=== PATIENT | female | born 1960 | race African-American/Black ===

== ENCOUNTER 2017-04-14 09:16 | Emergency (ER) | payer OTHER ==
[~2017-04-14] VITALS: Ht 167.6 cm; Wt 90.0 kg
[~2017-04-14 09:16] MED LIST: BENA25TA8 PO; LISI-363 PO; PROM25TA5 PO
[2017-04-14 09:17] VITALS: BP 176/104; PULSE 91; RESP 12; TEMP 98.9; O2SAT 98
[2017-04-14 09:30] VITALS: O2SAT 97
[2017-04-14] MEDS ORDERED: LISI-515 PO (09:38)
[2017-04-14] MEDS ORDERED: PROMSYP3 PO (09:38)
[2017-04-14] MEDS ORDERED: AZIT500T2 PO (09:38)
[2017-04-14] MEDS ORDERED: METF500T PO (09:41)
[2017-04-14] MEDS ORDERED: SODIUM CHLOR 0.9% 1000 ML INJ 1,000 ML IV SCH (09:46)
--- NOTE | 2017-04-14 09:55 | PD ---
HPI Chief Complaint: Chest Pain Time Seen by Provider: 09:32 Travel History International Travel<30 days: No Contact w/Intl Traveler<30days: No Traveled to known affect area: No History of Present Illness HPI The patient is a 57-year-old female who presents to the emergency department for multiple complaints. The patient states that her nephew was killed in [place], [place], last week. She has been having anxiety over the last week. She also complains of a chest cold for one week, saw her primary physician, Dr. Vinicius Solorzano, who prescribed her cough medicine and Zithromax. The patient continues to have chest congestion, wheezing, shortness of breath, and cough. She also complains of a sore throat, bilateral ear pain, cervical lymphadenopathy, and bodyaches. She also notes nausea, vomiting, and diarrhea with intermittent abdominal cramping. Symptoms are moderate. There are no current alleviating or exacerbating factors. PFSH Past Medical History Cardiovascular Problems: Yes Diabetes: Yes Patient Takes Glucophage: Yes Diminished Hearing: No Hypertension: Yes Tetanus Vaccination: > 5 Years Influenza Vaccination: No ?: Not Menopausal: Yes Past Surgical History Section: Yes (x2) Gynecologic Surgery: Yes Hysterectomy: Yes Social History Alcohol Use: Yes (SOCIAL ON WEEKENDS) Tobacco Use: No Substance Use: No Allergies-Medications (Allergen,Severity, Reaction): Coded Allergies: penicillin G (Unverified Allergy, Mild, 04/14/17) Reported Meds & Prescriptions Reported Meds & Active Scripts Active Reported Metformin (Metformin HCl) 500 Mg Tab 250 Mg PO DAILY Promethazine-Dextromethorphan Liq (Dextromethorphan-Promethazine Liq) 6.25-15 Mg /5 Ml Syrp 5 Ml PO Q6HR Azithromycin 500 Mg Tab 500 Mg PO DAILY Lisinopril 20 Mg Tab 20 Mg PO DAILY Review of Systems Except as stated in HPI: all other systems reviewed are Neg General / Constitutional: Positive: Fever, Chills HENT: Positive: Sore Throat, Congestion, Neck Pain, Earache Cardiovascular: No: Chest Pain or Discomfort Respiratory: Positive: Cough, Shortness of Breath, Wheezing Gastrointestinal: Positive: Nausea, Vomiting, Diarrhea, Abdominal Pain Genitourinary: No: Dysuria Musculoskeletal: Positive: Myalgias Psychiatric: Positive: Anxiety Physical Exam Narrative GENERAL: Awake, alert, pleasant 57-year-old female who appears her stated age and is in no acute respiratory distress. SKIN: Focused skin assessment warm/dry. HEAD: Atraumatic. Normocephalic. EYES: Pupils equal and round. No scleral icterus. No injection or drainage. ENT: No nasal bleeding or discharge. Oropharynx reveals an ulcerated lesion on the palate, superior left aspect. TMs are dull bilaterally with air-fluid levels. EACs are clear. NECK: Trachea midline. No JVD. Bilateral anterior cervical lymphadenopathy mobile but tender. CARDIOVASCULAR: Regular rate and rhythm. No murmur appreciated. RESPIRATORY: No accessory muscle use. Few scattered wheezes. GASTROINTESTINAL: Abdomen soft, non-tender, nondistended. No rebound tenderness. MUSCULOSKELETAL: No obvious deformities. No clubbing. No cyanosis. No edema. NEUROLOGICAL: Awake and alert. No obvious cranial nerve deficits. Motor grossly within normal limits. Normal speech. PSYCHIATRIC: Appropriate mood and affect; insight and judgment normal. Data Data Last Documented VS Vital Signs Date Time Temp Pulse Resp B/P (MAP) Pulse Ox O2 Delivery O2 Flow Rate FiO2 04/14/17:17 98.9 91 12 176/104 (128) 98 Orders Orders Electrocardiogram (04/14/17 ) Complete Blood Count With Diff (04/14/17 09:46) Comprehensive Metabolic Panel (04/14/17 09:46) Lipase (04/14/17 09:46) Urinalysis - C+S If Indicated (04/14/17 09:46) Iv Access Insert/Monitor (04/14/17 09:46) Ecg Monitoring (04/14/17 09:46) Oximetry (04/14/17 09:46) Ondansetron Inj (Zofran Inj) (04/14/17 10:00) Sodium Chlor 0.9% 1000 Ml Inj (Ns 1000 M (04/14/17 09:46) Sodium Chloride 0.9% Flush (Ns Flush) (04/14/17 10:00) Chest, Single Ap (04/14/17 09:46) Influenzae A/B Antigen (04/14/17 09:46) Lorazepam Inj (Ativan Inj) (04/14/17 10:00) Albuterol-Ipratropium Neb (Duoneb Neb) (04/14/17 10:00) Methylprednisolone So Succ Inj (Solumedr (04/14/17 10:00) Labs Laboratory Tests Test 04/14/17 09:50 04/14/17 11:25 White Blood Count 4.4 TH/MM3 Red Blood Count 4.19 MIL/MM3 Hemoglobin 12.6 GM/DL Hematocrit 36.8 % Mean Corpuscular Volume 87.9 FL Mean Corpuscular Hemoglobin 30.0 PG Mean Corpuscular Hemoglobin Concent 34.2 % Red Cell Distribution Width 13.8 % Platelet Count 248 TH/MM3 Mean Platelet Volume 8.8 FL Neutrophils (%) (Auto) 40.7 % Lymphocytes (%) (Auto) 48.5 % Monocytes (%) (Auto) 9.6 % Eosinophils (%) (Auto) 0.4 % Basophils (%) (Auto) 0.8 % Neutrophils # (Auto) 1.8 TH/MM3 Lymphocytes # (Auto) 2.1 TH/MM3 Monocytes # (Auto) 0.4 TH/MM3 Eosinophils # (Auto) 0.0 TH/MM3 Basophils # (Auto) 0.0 TH/MM3 CBC Comment DIFF FINAL Differential Comment Blood Urea Nitrogen 12 MG/DL Creatinine 0.87 MG/DL Random Glucose 100 MG/DL Total Protein 7.9 GM/DL Albumin 3.8 GM/DL Calcium Level 9.0 MG/DL Alkaline Phosphatase 77 U/L Aspartate Amino Transf (AST/SGOT) 28 U/L Alanine Aminotransferase (ALT/SGPT) 57 U/L Total Bilirubin 0.5 MG/DL Sodium Level 143 MEQ/L Potassium Level 3.3 MEQ/L Chloride Level 107 MEQ/L Carbon Dioxide Level 30.2 MEQ/L Anion Gap 6 MEQ/L Estimat Glomerular Filtration Rate 81 ML/MIN Lipase 308 U/L Urine Color LIGHT-YELLOW Urine Turbidity HAZY Urine pH 7.0 Urine Specific [place] 1.006 Urine Protein NEG mg/dL Urine Glucose (UA) NEG mg/dL Urine Ketones NEG mg/dL Urine Occult Blood NEG Urine Nitrite NEG Urine Bilirubin NEG Urine Urobilinogen LESS THAN 2.0 MG/DL Urine Leukocyte Esterase NEG Urine RBC LESS THAN 1 /hpf Urine WBC 1 /hpf Urine Squamous Epithelial Cells 15 /hpf Urine Bacteria FEW /hpf Microscopic Urinalysis Comment CULT NOT INDICATED MDM Medical Decision Making Medical Screen Exam Complete: Yes Emergency Medical Condition: Yes Medical Record Reviewed: Yes Interpretation(s) EKG reveals normal sinus rhythm with a rate 88. No ischemic changes or ectopy noted. Last Impressions Chest X-Ray 04/14/17 0946 Signed Impressions: Service Date/Time: Friday, April 14, 2017 10:19 - CONCLUSION: Normal examination for a patient of this age. Dario Naik MD Date/Time Source Procedure Growth Status 04/14/17 09:50 Nasal Aspirate Influenza Types A,B Antigen ([facility]) - Final NEGATIVE FOR FLU A AND B ANTIGEN.... Complete Laboratory Tests Test 04/14/17 09:50 04/14/17 11:25 White Blood Count 4.4 TH/MM3 Red Blood Count 4.19 MIL/MM3 Hemoglobin 12.6 GM/DL Hematocrit 36.8 % Mean Corpuscular Volume 87.9 FL Mean Corpuscular Hemoglobin 30.0 PG Mean Corpuscular Hemoglobin Concent 34.2 % Red Cell Distribution Width 13.8 % Platelet Count 248 TH/MM3 Mean Platelet Volume 8.8 FL Neutrophils (%) (Auto) 40.7 % Lymphocytes (%) (Auto) 48.5 % Monocytes (%) (Auto) 9.6 % Eosinophils (%) (Auto) 0.4 % Basophils (%) (Auto) 0.8 % Neutrophils # (Auto) 1.8 TH/MM3 Lymphocytes # (Auto) 2.1 TH/MM3 Monocytes # (Auto) 0.4 TH/MM3 Eosinophils # (Auto) 0.0 TH/MM3 Basophils # (Auto) 0.0 TH/MM3 CBC Comment DIFF FINAL Differential Comment Blood Urea Nitrogen 12 MG/DL Creatinine 0.87 MG/DL Random Glucose 100 MG/DL Total Protein 7.9 GM/DL Albumin 3.8 GM/DL Calcium Level 9.0 MG/DL Alkaline Phosphatase 77 U/L Aspartate Amino Transf (AST/SGOT) 28 U/L Alanine Aminotransferase (ALT/SGPT) 57 U/L Total Bilirubin 0.5 MG/DL Sodium Level 143 MEQ/L Potassium Level 3.3 MEQ/L Chloride Level 107 MEQ/L Carbon Dioxide Level 30.2 MEQ/L Anion Gap 6 MEQ/L Estimat Glomerular Filtration Rate 81 ML/MIN Lipase 308 U/L Urine Color LIGHT-YELLOW Urine Turbidity HAZY Urine pH 7.0 Urine Specific [place] 1.006 Urine Protein NEG mg/dL Urine Glucose (UA) NEG mg/dL Urine Ketones NEG mg/dL Urine Occult Blood NEG Urine Nitrite NEG Urine Bilirubin NEG Urine Urobilinogen LESS THAN 2.0 MG/DL Urine Leukocyte Esterase NEG Urine RBC LESS THAN 1 /hpf Urine WBC 1 /hpf Urine Squamous Epithelial Cells 15 /hpf Urine Bacteria FEW /hpf Microscopic Urinalysis Comment CULT NOT INDICATED Differential Diagnosis Differential diagnosis includes influenza, viral syndrome, pneumonia, gastroenteritis, dehydration, electrolyte abnormality, anxiety, bronchitis. Narrative Course IV was established, labs are drawn and sent, and the patient was placed on cardiac telemetry monitoring and continuous pulse oximetry monitoring. EKG was ordered and interpreted. Chest x-ray was obtained. Influenza screen was sent to lab. The patient was data entry supervisor and IV fluids, Zofran, and Ativan. Influenza screen is negative. Chest x-rays unremarkable. Laboratory evaluation reveals normal white count with increase in lymphocytes. Patient has a viral syndrome with secondary bronchitis reactive airway disease. Patient is already on Zithromax. I will add steroids and albuterol inhaler. She is requesting medications for her anxiety after the of her family member, I will write for 5 Ativan pills. She is advised to follow-up with a primary physician, Dr. Vinicius Solorzano. Return if symptoms worsen or progress. Diagnosis Primary Impression: Viral syndrome Additional Impressions: Bronchitis Adjustment reaction Qualified Codes: F43.20 - Adjustment disorder, unspecified Patient Instructions: General Instructions Additional Instructions: Please provide the patient a copy of her lab results, flu results, and x-ray results at discharge. Medications as directed. Continue Zithromax as previously directed. Follow-up with her primary physician, Dr. Vinicius Solorzano. Med/Other Pt SpecificInfo: Prescription(s) given Scripts Lorazepam (Ativan) 1 Mg Tab 1 MG PO Q6H Y for ANXIETY AND/OR AGITATION, #7 TAB 0 Refills Prov: Daquan Be MD 04/14/17 Albuterol 8.5 GM Inh (Proair Hfa 8.5 GM Inh) 90 Mcg/Act Aer 2 PUFF INH Q4-6H Y for SHORTNESS OF BREATH, #1 INHALER 0 Refills 108 mcg/actuation Prov: Daquan Be MD 04/14/17 Prednisone (Prednisone) 20 Mg Tab 40 MG PO DAILY for 5 Days, #10 TAB 0 Refills Take 40 mg (2 tablets) daily for 5 days Prov: Daquan Be MD 04/14/17 Disposition: 01 DISCHARGE HOME Condition: Stable Daquan Be MD Apr 14, 2017 09:55
[2017-04-14] MEDS ORDERED: SODIUM CHLORIDE 0.9% FLUSH 10 ML FLUSH IV FLUSH PRN (10:00)
[2017-04-14] MEDS ORDERED: methylPREDNISolone SOD SUCC 125 MG/2 ML VIAL IV PUSH ONE (10:00)
[2017-04-14] MEDS ORDERED: ONDANSETRON HCL 4 MG/2 ML VIAL IVP ONE (10:00)
[2017-04-14] MEDS ORDERED: RESP: ALBUTEROL 2.5 MG/IPRATROPIUM 0.5 MG NEB (SCH) NEB ONE (10:00)
[2017-04-14] MEDS ORDERED: LORazepam 2 MG/ML VIAL IV PUSH ONE (10:00)
[2017-04-14 10:37] LABS: AUTOMATED NEUTROPHIL # 1.8 TH/MM3 (1.8-7.7); BASOPHIL % 0.8 % (0.0-2.0); EOSINOPHIL % 0.4 % (0.0-4.0); HEMATOCRIT 36.8 % (35.0-46.0); HEMOGLOBIN 12.6 GM/DL (11.6-15.3); LYMPH % 48.5 % (9.0-44.0); LYMPHOCYTE # 2.1 TH/MM3 (1.0-4.8); MEAN CELL VOLUME 87.9 FL (80.0-100.0); MEAN CORPUSCULAR HGB CONC 34.2 % (32.0-36.0); MEAN PLATELET VOLUME 8.8 FL (7.0-11.0); MONO % 9.6 % (0.0-8.0); MONOCYTE # 0.4 TH/MM3 (0-0.9); NEUT % 40.7 % (16.0-70.0); PLATELET COUNT 248 TH/MM3 (150-450); RED BLOOD COUNT 4.19 MIL/MM3 (4.00-5.30); RED CELL DISTRIBUTION WIDTH 13.8 % (11.6-17.2); WHITE BLOOD COUNT 4.4 TH/MM3 (4.0-11.0)
--- NOTE | 2017-04-14 10:44 | RADRPT ---
EXAM DATE/TIME: 04/14/2017 10:19 [facility] COMPARISON: No previous studies available for comparison. INDICATIONS : Palpitations, wheezing, and coughing for one week. MEDICAL HISTORY : Hypertension. SURGICAL HISTORY : None. ENCOUNTER: Initial ACUITY: 1 week PAIN SCORE: 0/10 LOCATION: Bilateral chest FINDINGS: A single view of the chest demonstrates the lungs to be symmetrically aerated without evidence of mas s, infiltrate or effusion. The cardiomediastinal contours are unremarkable. Osseous structures are intact. CONCLUSION: Normal examination for a patient of this age. Dario Naik MD on April 14, 2017 at 10:43 Board Certified Radiologist. This report was verified electronically.
[2017-04-14 10:51] LABS: ALBUMIN 3.8 GM/DL (3.4-5.0); ALT (GPT) 57 U/L (10-53); AST (GOT) 28 U/L (15-37); BICARBONATE 30.2 MEQ/L (21.0-32.0); BLOOD UREA NITROGEN 12 MG/DL (7-18); CHLORIDE 107 MEQ/L (98-107); CREATININE 0.87 MG/DL (0.50-1.00); GLOMERULAR FILTRATION RATE 81 ML/MIN (>89); GLUCOSE,RANDOM 100 MG/DL (74-106); SODIUM (NA) 143 MEQ/L (136-145)
[2017-04-14 10:54] LABS: ALKALINE PHOSPHATASE 77 U/L (45-117); TOTAL BILIRUBIN ADULT 0.5 MG/DL (0.2-1.0); TOTAL PROTEIN 7.9 GM/DL (6.4-8.2)
[2017-04-14 12:15] LABS: BACTERIA, URINE FEW /hpf; BILIRUBIN, URINE NEG (NEG); BLOOD, URINE NEG (NEG); GLUCOSE,URINE NEG (NEG); KETONE, URINE NEG (NEG); NITRITE,URINE NEG (NEG); SQUAMOUS EPITHELIAL CELL URINE 15 /hpf (0-5); URINE COLOR LIGHT-YELLOW (YELLW/STRAW); URINE LEUKOCYTE ESTERASE NEG (NEG)
[2017-04-14] MEDS ORDERED: LORA-474 PO (12:28)
[2017-04-14] MEDS ORDERED: PRED20 PO (12:28)
[2017-04-14] MEDS ORDERED: ALBUAER3 INH (12:28)
[2017-04-14 12:44] VITALS: BP 147/85; PULSE 82; RESP 18; O2SAT 96
--- NOTE | 2017-04-14 13:26 | EKG ---
Date Performed: 04/14/2017 Time Performed: 09:39:05 PTAGE: 57 years EKG: Sinus rhythm NORMAL ECG NO PREVIOUS TRACING DOCTOR: Curtis Rajan Interpretating Date/Time 04/14/2017 13:23:48
== END 2017-04-14 12:54 | disposition home or self-care (01) ==
LOC: NEPE 09:16
DX: B34.9 Viral infection, unspecified (principal); J40 Bronchitis, not specified as acute or chronic; F43.20 Adjustment disorder, unspecified; E11.9 Type 2 diabetes mellitus without complications; I10 Essential (primary) hypertension; Z88.0 Allergy status to penicillin; Z79.899 Other long term (current) drug therapy
CPT/HCPCS: 71045; 80053; 81001; 83690; 85025; 87804; 93005; 94664; 96361; 96374; 96375; 99285; J2060; J2405; J2930; J7030